=== PATIENT | female | born 1940 | race Caucasian/White ===

== ENCOUNTER → 2016-04-29 | Outpatient (CLI) | payer MEDICARE ==
--- NOTE | 2016-04-30 14:02 | PE ---
EXAMINATION TYPE: PET CT fusion whole body DATE OF EXAM: 04/29/2016 3:42 PM CLINICAL HISTORY: 75-year-old female with breast cancer, initial staging. TECHNIQUE: Following the intravenous administration of 13.5 mCi of F-18 FDG, whole body images are performed from the skull base to the midthigh. Images are reviewed on the computer in the coronal, a xial, and sagittal planes. Reconstructed rotating images are created on independent workstation and reviewed on the computer. A localization and attenuation correction CT is performed in conjunction with the PET scan. Glucose level: 87 mg/dL COMPARISON: None. FINDINGS: PET: There is bilateral palatine tonsillar hypertrophy with some calcifications on the left suggesting seq uela of prior infection. There is relatively symmetrical moderate FDG uptake likely on a physiologic basis. Small hypodense nodules within both lobes of thyroid gland measure up to 8 mm and show no discrete FD G uptake. Patient's known right breast carcinoma measures up to 3.4 cm and shows very intense hypermetabolism, maximum SUV. There is right axillary lymphadenopathy that also shows very intense hypermetabolism measuring up to 2.9 x 5.5 cm. However, additional smaller right axillary lymphadenopathy is present deeper and more superiorly exte nding up into the subpectoral region, anterior and superior to the medial axillary vessels. The small est and most cranially located axillary lymph node measures only 6 mm but shows intense FDG uptake, m aximum SUV Refer to axial CT slices 63 through 85 for the full extent of right axillary lymphadenopathy. No abnormal hypermetabolism seen within other portions of the right breast or on the contralateral si de. There is otherwise physiologic FDG uptake throughout the chest, abdomen, and pelvis. ATTENUATION CORRECTION CT: Visualized paranasal sinuses and mastoid air cells are clear. No cervical lymphadenopathy seen. Heart is upper limits of normal in size with trace pericardial fluid. Aorta is normal caliber with mi ld atherosclerotic arch calcifications. No mediastinal lymphadenopathy. Mild emphysematous changes i n the lungs with biapical pleural parenchymal scarring. Strandy atelectasis in the lower lungs. Small hiatal hernia. No mesenteric or retroperitoneal lymphadenopathy. No dilated small bowel, free f luid, or free air. No pericolonic inflammatory change. Mild distal sigmoid diverticulosis without acu te diverticulitis. Bladder is nondistended. Uterus and ovaries are visualized. No abnormal fluid collection in the pelvi s or pelvic lymphadenopathy. Bones: S-shaped scoliosis with degenerative changes in the hips and lower lumbar spine. No osseous de structive process. IMPRESSION: 1. Known intensely hypermetabolic right breast carcinoma. 2. Metastatic disease is limited to the right axilla measuring up to 5.5 cm. However, the axillary ly mphadenopathy is fairly extensive extending deep to the subpectoral region and also superiorly, locat ed anterior and superior to the axillary vessels (axial CT images 63 through 85).
== END ==
LOC: RADPETMAIN 13:14
PROVIDERS: ATTEND Surgery
DX: C50.419 Malignant neoplasm of upper-outer quadrant of unspecified female breast (principal)
CPT/HCPCS: 78816; A9552

== ENCOUNTER 2016-05-09 11:17 | Day surgery (SDC) | payer MEDICARE ==
[2016-05-04 14:29] VITALS: BMI 28.4
[~2016-05-09 11:17] MED LIST: HYDROmorphone 1 MG/ML 1 ML SYRINGE IVP PRN; LACTATED RINGERS 1,000 ML IV SCH; LIDOCAINE 1% 20 ML VIAL (10MG/ML) FOR IV START INTRADERMA PRN; ONDANSETRON 4 MG/2 ML VIAL IVP PRN; ceFAZolin 2 GM in SODIUM CHLORIDE 0.9% 100 ML IVPB ONE
[2016-05-09 11:37] VITALS: RESP 16; TEMP 97.7
[2016-05-09] MEDS ORDERED: MIDAZOLAM 2 MG/2 ML VIAL ONE (12:08)
[2016-05-09] MEDS ORDERED: PHENYLEPHRINE-0.9% NACL SYG 1 MG/10 ML SYRINGE ONE (12:08)
[2016-05-09] MEDS ORDERED: fentaNYL (PF) 50 MCG/ML 2 ML AMP ONE (12:08)
[2016-05-09] MEDS ORDERED: PROPOFOL 10 MG/ML 20 ML VIAL IV ONE (12:08)
[2016-05-09] MEDS ORDERED: HEPARIN SODIUM,PORCINE 100 UNIT/ML 5 ML VIAL IV ONE (12:40)
[2016-05-09] MEDS ORDERED: IOHEXOL 350 MG/ML 50ML BOTTLE INJ ONE ×2 (12:42)
[2016-05-09] MEDS ORDERED: LIDOCAINE 1% INJ 10MG/ML (20 ML MDV) SQ ONE ×2 (12:43)
--- NOTE | 2016-05-09 13:26 | P.OP ---
Date of Procedure: 05/09/16 Preoperative Diagnosis: Right breast cancer Postoperative Diagnosis: Right breast Cancer Procedure(s) Performed: Placement of 6Fr bard mediport in the left internal jugular vein Anesthesia: VERO Surgeon: Yasmani Downey Pathology: none sent Condition: stable Disposition: PACU Indications for Procedure: Neoadjuvant chmeotherapy Operative Findings: Patent internal jugular vein Flouro time 2 min and 24 sec Description of Procedure: The patient was brought to the operating room and placed in supine position with both arms tucked. A footboard was placed. Chlorhexidine was used to prep the neck followed by application of sterile drapes and an Ioban dressing . A timeout was performed to verify correct patient and correct procedure. Patient was confirmed to receive perioperative IV antibiotics and VTE prophylaxis. An ultrasound was performed of the left neck to identify the carotid artery and internal jugular vein. The internal jugular vein was compressible and patent . Photodocumentation was made. Local anesthetic was infiltrated to create a field block. Seldinger technique was used and the internal jugular vein was accessed under direct ultrasound guidance. There was good backflow of dark venous blood. The guidewire was inserted and fluoroscopic images obtained to confirm the tip in SVC. The needle was removed followed by insertion of a dilator peel-away sheath. Local anesthetic was infiltrated along the inferior aspect of the right clavicle. A 2.5 cm skin incision was made and dissection was carried up to the pectoralis major muscle. A pocket was created for the port. The peel-away was cracked and removed with the port in appropriate position as confirmed by fluoroscopy and dye. A Kulwinder was used to tunnel from the expected port site all the way up to the small incision in the neck and the catheter was pulled down into the cavity and then, once cut to size and attached to the port. The connector was clipped shut into position after which fluoroscopy was done positioning. We did use radiopaque dye for this roughly 17 mL. Once that was done subcutaneous tissue in the right pocket area was closed with 2-0 Vicryl. This was done after placing stay sutures with 3-0 Prolene for the port. Skin was closed with 4-0 Monocryl for the port site as well as the initial access site. Dermabond was applied slight pressure dressing in the neck as well as Telfa with Tegaderm for the right pectoral region. Total fluoroscopic time was 2 min 24 seconds. Prior to leaving the operating room fluoroscopy showed the catheter tip in the appropriate site patient will get a chest x-ray in recovery.
--- NOTE | 2016-05-09 13:57 | XR ---
EXAMINATION TYPE: XR chest 1V confirm line [facility] DATE OF EXAM: 05/09/2016 1:50 PM COMPARISON: PET/CT April 29, 2016 HISTORY: Breast cancer status post Mediport catheter placement TECHNIQUE: Single AP portable frontal upright view of the chest is obtained. FINDINGS: There is left internal jugular Mediport catheter with tip in SVC. There is chronic parenchy mal change without suspicious focal air space opacity, pleural effusion, or pneumothorax seen. The c ardiac silhouette size is within normal limits. The osseous structures are demineralized. IMPRESSION: No evidence of pneumothorax after left internal jugular Mediport catheter placement with tip in SVC.
--- NOTE | 2016-05-09 14:22 | FL ---
EXAMINATION TYPE: FL guided central line placemt DATE OF EXAM: 05/09/2016 1:46 PM CLINICAL HISTORY: Newly diagnosed breast cancer TECHNIQUE: Fluoroscopy. COMPARISON: None. FINDINGS: Fluoroscopic guidance was provided during Mediport catheter insertion procedure performed by Dr. Downey. A total of 140 seconds of fluoroscopic time was utilized during the procedure and 1 spo t image is acquired. Single spot images saved show catheter tip at level of SVC. IMPRESSION: As Above.
[2016-05-09 14:32] VITALS: BP 163/78; PULSE 89
== END 2016-05-09 14:53 | disposition home or self-care (01) ==
LOC: OR 11:17
PROVIDERS: ATTEND Surgery
DX: C50.911 Malignant neoplasm of unspecified site of right female breast (principal); I10 Essential (primary) hypertension; Z79.899 Other long term (current) drug therapy
CPT/HCPCS: 77001; 36561; C1788; J2250; J1642; J0690; J2405; J2001; J3010; J2370; J2704; Q9967